=== PATIENT | female | born 1980 | race Hispanic/Latino ===

== ENCOUNTER 2019-07-04 01:20 | Emergency (ER) | payer OTHER, SELFPAY ==
--- NOTE | ~2019-07-04 | XR_ITS ---
EXAMINATION: XR knee LT min 4V DATE: 07/04/2019 02:02 INDICATION: Left knee pain TECHNIQUE: Anteroposterior, 2 oblique and crosstable lateral views of the left knee were obtained COMPARISON: None. FINDINGS: Alignment is normal. No fracture. Joint spaces appear normal on nonweightbearing imaging. Small left knee joint effusion without layering lipohemarthrosis. Mild pretibial subcutaneous edema. IMPRESSION: 1. Small left knee joint effusion without osseous abnormality. Reviewed, dictated and finalized at location A.
[2019-07-04 01:24] VITALS: BP 132/63; PULSE 69; RESP 19; TEMP 36.7; O2SAT 98
--- NOTE | 2019-07-04 01:36 | ED.EXTPRO ---
HPI - Extremity Problem General Chief complaint: Extremity Problem,Nontraumatic Stated complaint: L KNEE PAIN Time Seen by Provider: 07/04/19 01:35 Source: patient and RN notes reviewed Mode of arrival: other Limitations: no limitations History of Present Illness HPI Narrative: Pt is a 39 y/o female who presents to the ED with c/o left knee pain that began yesterday (07/03/19) around 7:45-8 PM after going down the stairs. Pt states that she hear a 'pop' noise and had shooting pains up and down her LLE. Pt states that her left knee has been swelling since the incident. Pt notes that she has been able to ambulate, but her pain is worsened with movement. Pt states that she took Motrin 220 mg about an hour ago. Pt denies numbness and tingling. Complaint: joint paint Onset (ago): day(s) (1) Pain Consistency: constant Location: left and knee Relieving factors: nothing Exacerbating factors: walking Associated symptoms: denies other symptoms Related Data Allergies Allergy/AdvReac Type Severity Reaction Status Date / Time No Known Allergies Allergy Verified 07/04/19 01:33 Review of Systems Review of Systems: All systems reviewed & are unremarkable except as noted in HPI and below Musculoskeletal: Musculoskeletal: Reports other (left knee pain) Neurologic: Denies numbness and Denies tingling PMFSH Past Medical History Medical History (Updated 07/04/19 @ 02:08 by Patrice Jin MD) Bronchitis History of obesity Surgical History Surgical History (Updated 07/04/19 @ 01:37 by Kelsi Martinez) Hx of section x3 Family History Family History (Updated 07/04/19 @ 01:44 by Kelsi Martinez) Sibling Hypertension Diabetes mellitus Crohn's disease Grandparent Cerebrovascular accident Alzheimers disease Diabetes mellitus Hypertension Social History Social History (Updated 05/02/19 @ 20:42 by Bekah Howard PA-C) Smoking status: Never smoker Gender identity (if verbalized by the patient): Female Exam Const: General: healthy appearing and no acute distress Nutritional Appearance: obese HENMT: Mouth: Yes lip normal and Yes moist mucous membranes Eyes: Conjunctivae: conjunctivae normal Pupils: Equal, round and reactive pupils present Resp: Effort & Inspection: normal respiratory effort Skin: General skin exam: normal color, dry skin and other (warm) Neuro: General: patient oriented x3 and other (alert) Speech: normal speech Extrem: General: full ROM and no calf tenderness Other: Left popliteal fossa tenderness Psych: Mental Status: mental status grossly normal Affect: normal affect Course Vital Signs Vital signs: Vital Signs Temperature 36.7 C 07/04/19 01:24 Pulse Rate 69 07/04/19 01:24 Respiratory Rate 19 07/04/19 01:24 Blood Pressure 132/63 07/04/19 01:24 Pulse Oximetry 98 07/04/19 01:24 Temperature 36.7 C 07/04/19 01:24 Pulse Rate 69 07/04/19 01:24 Respiratory Rate 19 07/04/19 01:24 Blood Pressure 132/63 07/04/19 01:24 Pulse Oximetry 98 07/04/19 01:24 MDM - Extremity (Nontraumatic) MDM Narrative Medical decision making narrative: Fracture, dislocation, meniscal injury, Discharge Plan Discharge Clinical Impression: Effusion of knee joint, left Patient Disposition: Home, Self-Care Condition: Stable Instructions: Swollen Knee Joint (ED) Prescriptions: New ibuprofen 800 mg tablet 800 mg PO TID PRN (Reason: pain) Qty: 20 RF: 0 Follow-up/Referrals: UNKNOWN,DOCTOR [Primary Care Provider] -
[2019-07-04] MEDS: ACETAMINOPHEN 500 MG TABLET 1000 MG PO (02:11)
[2019-07-04 03:00] VITALS: BP 144/86; PULSE 88; RESP 19; O2SAT 97
== END 2019-07-04 03:00 | disposition home or self-care (01) ==
PROVIDERS: Emergency Provider Emergency Medicine
DX: M25.462 Effusion, left knee (principal); E66.9 Obesity, unspecified; Z68.41 Body mass index [BMI] 40.0-44.9, adult
CPT/HCPCS: 73564; 99283; A9270

== ENCOUNTER 2020-07-08 10:12 | Emergency (ER) | payer OTHER, SELFPAY ==
--- NOTE | ~2020-07-08 | XR_ITS ---
EXAMINATION: XR chest 1V portable EXAM DATE: 07/08/2020 10:47 INDICATION: Cough and weakness. TECHNIQUE: Frontal and lateral projections of the chest obtained and reviewed. Comparison is made to prior examination from 05/08/2013. FINDINGS: The lungs are clear. There are no pleural effusions. The cardiomediastinal silhouette is within normal limits. There is no pneumothorax suspected. The bones and soft tissues are unremarkab le. IMPRESSION: No acute cardiopulmonary findings. Reviewed, dictated and finalized at location A.
[2020-07-08 10:21] VITALS: BP 145/99; PULSE 78; RESP 20; TEMP 36.7; O2SAT 97
[2020-07-08] MEDS: DEXAMETHASONE SOD PHOS INJ 4 MG/ML VIAL 10 MG IM (10:53)
[2020-07-08 10:57] VITALS: BP 128/80; PULSE 70; RESP 17; O2SAT 95
--- NOTE | 2020-07-08 11:24 | ED.GENADULT ---
HPI - General Adult General Chief complaint: Unspecified Stated complaint: SOB/ST Time Seen by Provider: 07/08/20 10:21 Source: patient Mode of arrival: EMS Limitations: no limitations History of Present Illness HPI narrative: Patient presents with chief complaint of sore throat that began yesterday however today she began feeling concerned because the pain increased and she feels as if her throat was going to close. Patient states the last time that this happened a year ago her daughter was diagnosed with strep throat and had given it to her. Patient denies fever, chills, nausea, vomiting, diarrhea. Patient denies any foods or beverages that could have caused her symptoms. Patient denies cough. Related Data Allergies Allergy/AdvReac Type Severity Reaction Status Date / Time No Known Allergies Allergy Verified 07/08/20 10:33 Review of Systems Review of Systems: Narrative: CONSTITUTIONAL: Denies fever, chills, or sweats. EYES: Denies visual changes, redness, or discharge. ENT: Reports sore throat denies rhinorrhea, congestion, or otalgia. CARDIOVASCULAR: Denies chest pain, palpitations, or edema. RESPIRATORY: Denies cough or dyspnea. GASTROINTESTINAL: Denies abdominal pain, nausea, vomiting, or diarrhea. GENITOURINARY: Denies dysuria or hematuria. SKIN: Denies rash or itching. MUSCULOSKELETAL: Denies back pain, joint pain, or myalgia. NEUROLOGIC: Denies headache, numbness, dizziness, or weakness. PSYCHIATRIC: Denies anxiety or depression. PMFSH Past Medical History Medical History (Updated 07/08/20 @ 11:28 by Hermelinda Amaya PA-C) Bronchitis History of obesity Surgical History Surgical History (Updated 07/04/19 @ 01:37 by Kelsi Martinez) Hx of section x3 Family History Family History (Updated 07/04/19 @ 01:44 by Kelsi Martinez) Sibling Hypertension Diabetes mellitus Crohn's disease Grandparent Cerebrovascular accident Alzheimers disease Diabetes mellitus Hypertension Social History Social History (Updated 05/02/19 @ 20:42 by Bekah Howard PA-C) Smoking status: Never smoker Gender identity (if verbalized by the patient): Female Exam Narrative: Exam Narrative: GENERAL: Well-appearing, well-nourished, and in no acute distress. Morbidly obese. HEAD: Normocephalic, atraumatic. EYES: PERRLA and EOMI. ENT: Nares clear, no rhinorrhea or epistaxis. Mucous membranes moist. Oropharynx without tonsillar hypertrophy exudate or other lesions. Airway is patent without erythema or signs of obstruction. Bilateral TMs pearly merritt nonbulging NECK: Supple. No adenopathy or masses. CHEST: Clear to auscultation. No respiratory distress. No wheezes rales or rhonchi HEART: Regular rate and rhythm. No murmur heard. Normal peripheral pulses. EXTREMITIES: Normal range of motion. No edema. SKIN: Warm, dry, no rash. NEURO: No focal deficits. Alert and oriented x3. PSYCH: Normal mood and affect. Course Vital Signs Vital signs: Vital Signs Temperature 98.1 F 07/08/20 10:21 Pulse Rate 78 07/08/20 10:21 Respiratory Rate 20 07/08/20 10:21 Blood Pressure 145/99 H 07/08/20 10:21 Pulse Oximetry 97 07/08/20 10:21 Temperature 98.1 F 07/08/20 10:21 Pulse Rate 70 07/08/20 10:57 Respiratory Rate 17 07/08/20 10:57 Blood Pressure 128/80 07/08/20 10:57 Pulse Oximetry 95 07/08/20 10:57 Medical Decision Making MDM Narrative Medical decision making narrative: Patient given Decadron. Patient's airway is patent and does not show any signs of obstruction. Patient strep test was negative and her chest x-ray was negative. Patient does not have wheezing, rales or rhonchi or other signs of respiratory pathology. Patient is instructed to go home, rest, Tylenol or Motrin for throat soreness and follow-up with her primary care for further investigation. Patient directed to return to emergency department if she has any emergent symptoms. Patient reports feeling improved an
--- NOTE | 2020-07-08 11:41 | PC.NURSE ---
Pt refused to sign d/c papers. Attempted to give form to for him to sign. this RN asked pt if she could sign, and pt declined. pt/ verbalized understanding of d/c instructions. Ambulatory out of ED with steady, even, unassisted gait.
== END 2020-07-08 11:47 | disposition home or self-care (01) ==
PROVIDERS: Emergency Provider Emergency Medicine; PCP Family Medicine
DX: J02.9 Acute pharyngitis, unspecified (principal); E66.9 Obesity, unspecified; Z68.42 Body mass index [BMI] 45.0-49.9, adult
CPT/HCPCS: 71045; 87081; 87880; 96372; 99283; J1100

== ENCOUNTER 2021-07-31 08:02 | Outpatient (CLI) | payer OTHER, SELFPAY ==
--- NOTE | ~2021-07-31 | MM_ITS ---
EXAMINATION: MM screening marc BI w rigo HISTORY: Screening mammogram TECHNIQUE: Craniocaudal and mediolateral oblique 3-D tomosynthesis images were obtained and synthetic 2-D images were generated. CAD analysis was submitted and interpreted. COMPARISON: No prior mammogram is available for comparison at this institution. BREAST PARENCHYMAL COMPOSITION: The breasts are almost entirely fatty. FINDINGS: There is no evidence of suspicious mass, calcification, or architectural distortion to sugg est malignancy in either breast. There has been no suspicious interval change. IMPRESSION: 1. No mammographic evidence of malignancy. 2. Recommend routine screening mammography in one year. BI-RADS Category 1: Negative Reviewed, dictated and finalized at location A.
[2021-07-31 09:22] LABS: Alanine Aminotransferase 39 U/L (4-35); Albumin Level 4.6 g/dL (3.5-5.1); Alkaline Phosphatase 71 U/L (38-126); Anion Gap 8 mmol/L (8-16); Aspartate Amino Transferase 33 U/L (14-36); Bilirubin,Total 0.7 mg/dL (0.2-1.3); Blood Urea Nitrogen 11 mg/dL (7-17); Calcium 9.1 mg/dL (8.4-10.2); Carbon Dioxide 27 mmol/L (22-30); Chloride 104 mmol/L (98-107); Cholesterol 176 mg/dL (0-200); Estimated Glomerular Filt Rate > 60; Glucose 116 mg/dL (65-110); HDL Direct 42 mg/dL; Potassium 4.2 mmol/L (3.4-5.0); Sodium 139 mmol/L (137-145); Triglycerides 135 mg/dL (<150)
[2021-07-31 09:24] LABS: Basophils Percent Auto 0.5 % (0.2-1.2); Eosinophils Absolute Auto 0.4 K/mm3 (0-0.3); Eosinophils Percent Auto 4.7 % (0-4.4); Hematocrit 39.1 % (37.0-47.0); Hemoglobin 12.6 g/dL (12.0-15.0); Immature Granulocyte Percent A 1.2 % (0-0.5); Lymphocytes Absolute Auto 2.19 K/mm3 (0.9-3.2); Lymphocytes Percent Auto 26.4 % (18.3-44.2); Mean Corpuscular HGB Conc 32.2 g/dl (32-36); Mean Corpuscular Hemoglobin 29.6 pg (26-34); Mean Platelet Volume 10.2 fl (7.4-10.4); Monocytes Absolute Auto 0.4 K/mm3 (0.1-0.6); Monocytes Percent Auto 5.2 % (2.6-8.5); Neutrophils Absolute Auto 5.1 K/mm3 (1.3-6.7); Nucleated Red Blood Cells Perc 0.2 % (0.0-0.2); Platelet Count Result 278 k/mm3 (150-375); Red Blood Count 4.25 M/mm3 (4.2-5.4); Red Cell Distribution Width 12.8 % (11.5-14.5); White Blood Count 8.3 K/mm3 (4.5-10.0)
[2021-07-31 09:33] LABS: LDL Cholesterol Direct 99 mg/dL
[2021-07-31 09:35] LABS: Hemoglobin A1C 5.1 % (<5.7)
[2021-07-31 09:53] LABS: Free T4 Free Thyroxine 0.88 ng/mL (0.78-2.19)
== END 2021-07-31 08:03 | disposition home or self-care (01) ==
PROVIDERS: PCP Physician Assistant; Visit Provider Physician Assistant
DX: Z12.31 Encounter for screening mammogram for malignant neoplasm of breast (principal); L60.2 Onychogryphosis
CPT/HCPCS: 36415; 77063; 77067; 80053; 80061; 83036; 84439; 84443; 85025

== ENCOUNTER 2022-02-16 08:10 | Emergency (ER) | payer OTHER, SELFPAY ==
--- NOTE | 2022-02-16 08:16 | ED.URI ---
HPI - URI/Sore Throat General Chief Complaint: Upper Respiratory Infection Stated Complaint: Fever, Ears Irritation, Cough Time Seen by Provider: 02/16/22 08:16 Source: patient, RN notes reviewed and old records reviewed Mode of arrival: ambulatory Limitations: no limitations History of Present Illness HPI Narrative: 41-year-old female presents to the [facility] with complaints feeling feverish, ear congestion, cough, sinus congestion, sore throat since last night. Patient reports that she started not feeling well on Tuesday. Has taken Tylenol. No other treatment prior to arrival. Patient denies any past medical or surgical history Related Data Allergies Allergy/AdvReac Type Severity Reaction Status Date / Time No Known Allergies Allergy Verified 02/16/22 08:16 Review of Systems Review of Systems: All systems reviewed & are unremarkable except as noted in HPI and below Constitutional: Constitutional: Reports as per HPI, Reports body ache(s), Reports chills and Denies fever(s) Eyes: Eyes: Reports no additional eye complaints ENT: Reports as per HPI, Reports nasal congestion and Reports sore throat Cardiovascular: Cardiovascular: Reports no additional cardiovascular complaints Respiratory: Respiratory: Reports as per HPI and Reports cough Gastrointestinal: Gastrointestinal: Reports no additional gastrointestinal complaints Musculoskeletal: Musculoskeletal: Reports no additional musculoskeletal complaints Integumentary/Breasts: Skin/Breast: Reports system reviewed and no additional complaints, except as docu Neurologic: Reports system reviewed and no additional complaints, except as documented Psychiatric: Psychiatric: Reports no additional psychiatric complaints Allergic/Immunologic: Allergic/Immunologic: Reports no additional allergic/immunologic complaints PMFSH Past Medical History Medical History (Updated 02/16/22 @ 08:35 by Denise Mejía APRN) Bronchitis History of obesity Surgical History Surgical History Hx of section x3 Family History Family History (Updated 07/04/19 @ 01:44 by Kelsi Martinez) Sibling Hypertension Diabetes mellitus Crohn's disease Grandparent Cerebrovascular accident Alzheimers disease Diabetes mellitus Hypertension Social History Social History Smoking status: Never smoker Gender identity (if verbalized by the patient): Female Comments At the time of my signature, I reviewed and agree with the nursing past medical, surgical, social, and family history. There is no relevant family history pertinent to the patient complaint. Exam Const: General: healthy appearing, comfortable, no acute distress, well developed, alert and well nourished Nutritional Appearance: well nourished Orientation/consciousness: patient oriented x3 Limitations: no limitations HENMT: Head: normal to inspection Ears: external ears normal, TM's normal bilaterally and EAC's normal Face/Nose/Sinus: Normal external nose present and Normal nares present Face and sinus: normal facial exam Mouth: Yes Normal oral and palatal mucosa present, Yes lip normal and Yes moist mucous membranes Throat: posterior oropharynx normal and uvula midline Eyes: General: appearance normal, both eyes and all related structures Conjunctivae: conjunctivae normal Pupils: Equal, round and reactive pupils present Neck: Neck: normal visual inspection, full ROM, no lymphadenopathy and no meningeal signs Chest: Chest palpation & inspection: normal inspection of the chest Resp: Effort & Inspection: normal respiratory effort and no use of accessory muscles Auscultation: clear to auscultation bilaterally, no crackles, no rales, no rhonchi and no wheezes Cardio: Rate: regular rate Rhythm: regular rhythm Back/Spine/Pelvis: Cervical Spine: cervical ROM normal and No Cervical spine tenderness
[2022-02-16 08:19] VITALS: BP 115/66; PULSE 84; RESP 18; TEMP 36.1; O2SAT 99
== END 2022-02-16 08:55 | disposition home or self-care (01) ==
PROVIDERS: Emergency Provider Nurse Practitioner; PCP Physician Assistant
DX: J10.1 Influenza due to other identified influenza virus with other respiratory manifestations (principal); Z20.822 Contact with and (suspected) exposure to COVID-19; E66.9 Obesity, unspecified; Z68.44 Body mass index [BMI] 60.0-69.9, adult
CPT/HCPCS: 87081; 87426; 87804; 87880; 99213; C9803; G0463

== ENCOUNTER 2022-03-29 19:24 | Emergency (ER) | payer OTHER, SELFPAY ==
[2022-03-29 19:37] VITALS: BP 134/77; PULSE 71; RESP 16; TEMP 36.4; O2SAT 100
--- NOTE | 2022-03-29 20:15 | ED.URI ---
HPI - URI/Sore Throat General Chief Complaint: Upper Respiratory Infection Stated Complaint: Left Ear Pain, Sore Throat, Cough Source: patient Mode of arrival: ambulatory Limitations: no limitations History of Present Illness HPI Narrative: 41-year-old female presents to [facility] with complaints of sore throat, cough, left ear pain and body aches for the past 3 days. Patient has been taking leca-xya-bzoaior cold medication with minimal relief. Patient reports that she had influenza approximately 2 weeks ago. Patient denies shortness of breath, wheezing, nausea, vomiting or diarrhea. Patient denies recent travel. MD elicited complaint: sore throat, rhinorrhea and nasal congestion Onset (ago): day(s) (3) Able to tolerate fluids by mouth: Yes Treatments prior to arrival: cold medicine Related Data Allergies Allergy/AdvReac Type Severity Reaction Status Date / Time No Known Allergies Allergy Verified 03/29/22 19:42 Review of Systems Constitutional: Constitutional: Reports chills, Reports fatigue, Denies fever(s) and Denies weakness ENT: Reports nasal congestion and Reports sore throat Comments: Left ear pain Cardiovascular: Cardiovascular: Denies chest pain, Denies rapid heart rate and Denies radiating jaw, neck or arm pain Respiratory: Respiratory: Denies cough, Denies dyspnea and Denies wheezing Gastrointestinal: Gastrointestinal: Denies diarrhea, Denies nausea and Denies vomiting Integumentary/Breasts: Skin/Breast: Denies rash Allergic/Immunologic: Allergic/Immunologic: Denies lip swelling, Denies throat swelling and Denies tongue swelling PMFSH Past Medical History Medical History Bronchitis History of obesity Surgical History Surgical History Hx of section x3 Family History Family History Sibling Hypertension Diabetes mellitus Crohn's disease Grandparent Cerebrovascular accident Alzheimers disease Diabetes mellitus Hypertension Social History Social History Smoking status: Never smoker Gender identity (if verbalized by the patient): Female Comments At time of signature, I agree with nursing past medical, surgical, social and family history. There is no relevant family history pertinent to the presenting complaint. Exam Const: General: healthy appearing and no acute distress Nutritional Appearance: obese Orientation/consciousness: patient oriented x3 Limitations: no limitations HENMT: Head: normal to inspection Ears: external ears normal, EAC's normal and TM abnormal wth effusion serous on the left and erythematous on the left Throat: posterior oropharynx normal and uvula midline Other: mild nasal congestion noted Neck: Neck: normal visual inspection Resp: Effort & Inspection: normal respiratory effort and not labored Auscultation: clear to auscultation bilaterally, no crackles, no rales and no rhonchi Cardio: Rate: regular rate Rhythm: regular rhythm Heart sounds: no murmurs Skin: General skin exam: normal color Rashes: no rashes Psych: Affect: normal affect Attitude: cooperative Course Course Level of Care: Express Care Visit Vital Signs Vital signs: Vital Signs Temperature 36.4 C 03/29/22 19:37 Pulse Rate 71 03/29/22 19:37 Respiratory Rate 16 03/29/22 19:37 Blood Pressure 134/77 03/29/22 19:37 Pulse Oximetry 100 03/29/22 19:37 Oxygen Delivery Room Air 03/29/22 19:37 Temperature 36.4 C 03/29/22 19:37 Pulse Rate 71 03/29/22 19:37 Respiratory Rate 16 03/29/22 19:37 Blood Pressure 134/77 03/29/22 19:37 Pulse Oximetry 100 03/29/22 19:37 Oxygen Delivery Room Air 03/29/22 19:37 MDM - URI/Sore Throat MDM Narrative Medical decision making narrative: instructed patient to take
== END 2022-03-29 20:34 | disposition home or self-care (01) ==
PROVIDERS: Emergency Provider Nurse Practitioner Family; PCP Physician Assistant
DX: H66.92 Otitis media, unspecified, left ear (principal); E66.9 Obesity, unspecified; Z68.44 Body mass index [BMI] 60.0-69.9, adult
CPT/HCPCS: 99213; G0463

== ENCOUNTER 2022-08-04 18:22 | Emergency (ER) | payer OTHER, SELFPAY ==
[2022-08-04 18:31] VITALS: BP 152/72; PULSE 77; RESP 18; TEMP 36.5; O2SAT 100
--- NOTE | 2022-08-04 19:15 | ED.FEMALEGU ---
HPI - Female Genitourinary General Chief complaint: Urogenital-Female Stated complaint: UTI Time Seen by Provider: 08/04/22 19:08 Source: patient and RN notes reviewed Mode of arrival: ambulatory Limitations: no limitations History of Present Illness HPI Narrative: Patient presents today complaining 5 day history of lower abdominal cramping, low back pain, urinary frequency. Denies any additional symptoms. LMP was 07/07/2022. Denies dysuria, hematuria. Related Data Allergies Allergy/AdvReac Type Severity Reaction Status Date / Time No Known Allergies Allergy Verified 08/04/22 18:34 Review of Systems Review of Systems: CONSTITUTIONAL: Denies body aches, fever, chills, or sweats. EYES: Denies visual changes, redness, or discharge. ENT: Denies rhinorrhea, congestion, sore throat, or otalgia. CARDIOVASCULAR: Denies chest pain, palpitations, or edema. RESPIRATORY: Denies cough or dyspnea. GASTROINTESTINAL: Denies abdominal pain, nausea, vomiting, or diarrhea. GENITOURINARY: Denies dysuria or hematuria.+ urinary frequency, lower abdominal cramping SKIN: Denies rash, itching, or wounds. MUSCULOSKELETAL: Denies joint pain, or myalgia.+ low back pain NEUROLOGIC: Denies headache, numbness, tingling, or weakness. PSYCH: Denies depression or anxiety. [facility] Past Medical History Medical History Bronchitis History of obesity Surgical History Surgical History Hx of section x3 Family History Family History Sibling Hypertension Diabetes mellitus Crohn's disease Grandparent Cerebrovascular accident Alzheimers disease Diabetes mellitus Hypertension Social History Social History Smoking status: Never smoker Gender identity (if verbalized by the patient): Female Comments At time of signature, I have reviewed and agree with nursing past medical, surgical, social and family history unless otherwise noted. Please see nursing chart for further information. There is no relevant family history pertinent to the presenting complaint Exam Narrative: GENERAL: Well-appearing, well-nourished, and in no acute distress. HEAD: Normocephalic, atraumatic. EYES: EOMI. No redness or drainage. Conjunctivae normal. ENT: Mucous membranes pink and moist. NECK: Normal AROM. CHEST: No respiratory distress. Clear to auscultation. HEART: Regular rate and rhythm. No murmur appreciated. Normal peripheral pulses. ABDOMEN: Soft, nontender, nondistended, normal active bowel sounds.-CVAT MUSCULOSKELETAL: No bony tenderness. EXTREMITIES: Normal range of motion. No edema. SKIN: Warm, dry, no rash. Capillary refill normal. Normal skin turgor. NEURO: No focal deficits. Alert and oriented x3. Gait steady. PSYCH: Normal affect. No signs of depression or anxiety. Course Course Level of Care: Express Care Visit Vital Signs Vital signs: Vital Signs Temperature 97.7 F 08/04/22 18:31 Pulse Rate 77 08/04/22 18:31 Respiratory Rate 18 08/04/22 18:31 Blood Pressure 152/72 H 08/04/22 18:31 Pulse Oximetry 100 08/04/22 18:31 Oxygen Delivery Room Air 08/04/22 18:31 Temperature 97.7 F 08/04/22 18:31 Pulse Rate 77 08/04/22 18:31 Respiratory Rate 18 08/04/22 18:31 Blood Pressure 152/72 H 08/04/22 18:31 Pulse Oximetry 100 08/04/22 18:31 Oxygen Delivery Room Air 08/04/22 18:31 Reviewed. Pt has been instructed to follow up with her PCP regarding her elevated blood pressure today. MDM - Female Genitourinary MDM Narrative Medical decision making narrative: Patient not currently menstruating. Significant blood in the urine and she has a significant urinary frequency. Will treat for UTI. Prescription for cephalexin to the pharmacy. Anticipat
== END 2022-08-04 19:17 | disposition home or self-care (01) ==
PROVIDERS: Emergency Provider Nurse Practitioner; PCP Physician Assistant
DX: N30.01 Acute cystitis with hematuria (principal); E66.9 Obesity, unspecified; Z68.44 Body mass index [BMI] 60.0-69.9, adult
CPT/HCPCS: 81003; 87077; 87086; 87186; 99213; G0463

== ENCOUNTER 2023-01-03 17:10 | Outpatient (CLI) | payer OTHER, SELFPAY ==
--- NOTE | ~2023-01-03 | XR_ITS ---
XR knee RT 3V 01/03/2023 17:30 Indication: Right knee pain Procedure: 3 views right knee Comparison: No prior studies for comparison. Findings: Mild osteoarthritis of the right knee. Small joint effusion. No foreign bodies. Impression: 1: Mild osteoarthritis of the right knee. Reviewed, dictated and finalized at location L. Impression: 1: Mild osteoarthritis of the right knee.
== END 2023-01-03 17:11 | disposition home or self-care (01) ==
LOC: ANHIMG 17:12
PROVIDERS: PCP Physician Assistant; Visit Provider Physician Assistant
DX: M17.11 Unilateral primary osteoarthritis, right knee (principal)
CPT/HCPCS: 73562

== ENCOUNTER 2023-01-09 15:54 | Emergency (ER) | payer OTHER, SELFPAY ==
[2023-01-09 16:10] VITALS: BP 116/58; PULSE 76; RESP 20; TEMP 36.4; O2SAT 98
--- NOTE | 2023-01-09 16:33 | ED.URI ---
HPI - URI/Sore Throat General Chief Complaint: Upper Respiratory Infection Stated Complaint: Sore Throat and Cough Time Seen by Provider: 01/09/23 16:25 Source: patient, RN notes reviewed and old records reviewed Mode of arrival: ambulatory Limitations: no limitations History of Present Illness HPI Narrative: 42-year-old female who presents to [facility] with 1 week duration of tickling in throat which is causing cough and 2-3 days of sore throat. Patient denies any fevers, chills, headaches or any body aches. Patient has been taking some Ibuprofen for her discomfort. Patient reports that she has been COVID vaccinated. Patient reports no known ill contacts. MD elicited complaint: cough and sore throat Onset (ago): week(s) (cough one week, 2-3 days sore throat) Severity: mild Able to tolerate fluids by mouth: Yes Treatments prior to arrival: ibuprofen Related Data Allergies Allergy/AdvReac Type Severity Reaction Status Date / Time No Known Allergies Allergy Verified 01/09/23 16:03 Review of Systems Review of Systems: CONSTITUTIONAL: Denies malaise, chills, sweats, or fever. EYES: Denies visual changes, redness, or discharge. ENT: Reports rhinorrhea, congestion, no sinus pain,no otalgia and positive for sore throat. CARDIOVASCULAR: Denies chest pain, palpitations, or edema. RESPIRATORY: Reports cough.? Denies dyspnea. GASTROINTESTINAL: Denies abdominal pain, nausea, vomiting, diarrhea SKIN: Denies rash or itching. MUSCULOSKELETAL: Denies myalgia. NEUROLOGIC: Denies headache. All systems reviewed & are unremarkable except as noted in HPI and below PMFSH Past Medical History Medical History (Updated 01/12/23 @ 09:57 by Luh Hathaway NP) Bronchitis History of obesity Urinary tract infection Surgical History Surgical History (Updated 01/12/23 @ 09:54 by Luh Hathaway NP) Hx of section x4 Family History Family History Sibling Hypertension Diabetes mellitus Crohn's disease Grandparent Cerebrovascular accident Alzheimers disease Diabetes mellitus Hypertension Social History Social History Smoking status: Never smoker Gender identity (if verbalized by the patient): Female Comments At time of signature, agree with nursing past medical, surgical, social and family history. There is no relevant family history pertinent to the presenting complaint Exam Narrative: GENERAL: Well-appearing, well-nourished, and in no acute distress. HEAD: Normocephalic EYES: PERRLA, conjunctivae clear ENT: Nares clear, turbinates edematous and erythematous, clear discharge. Mucous membranes moist. TM pearly merritt with dull light reflex bilaterally; no tragal tenderness. Oropharynx erythematous without lesions. Tonsils not enlarged and without exudate, no drooling, no hoarseness, no trismus, uvula midline.post nasal drainage NECK: Supple. No lymphadenopath CHEST: Clear to auscultation, breath sounds equal. No wheezing, rhonchi, rales, or stridor. No respiratory distress, speaks in full sentences.cough,SAO2 98% on room air HEART: Regular rate and rhythm. No murmur heard. SKIN: Warm, dry, no rash. NEURO: Alert and oriented x3. PSYCH: Normal mood and affect Course Course Emergency Course: Patient is aware of diagnosis, understands and agrees to treatment plan.? Anticipatory guidance given.? Patient agrees to follow-up as directed and is aware of reasons to seek care at the emergency department. Portions of this record may have been created with voice recognition software Level of Care: Express Care Visit Vital Signs Vital signs: Vital Signs Temperature 36.4 C 01/09/23 16:10 Pulse Rate 76 01/09/23 16:10 Respiratory Rate 20 01/09/23 16:10 Blood Pressure 116/58 L 01/09/23 16:10 Pulse Oximetry 98 01/09/23 16:10 Oxygen Deliver
== END 2023-01-09 16:45 | disposition home or self-care (01) ==
PROVIDERS: Emergency Provider Registered Nurse; PCP Physician Assistant
DX: J06.9 Acute upper respiratory infection, unspecified (principal)
CPT/HCPCS: 87081; 87880; 99213; G0463

== ENCOUNTER 2023-03-17 09:00 | Outpatient (RCR) | payer OTHER, SELFPAY ==
--- NOTE | 2023-01-27 16:30 | OPREHPOC ---
Outpatient Therapy Plan of Care This is a Multidisciplinary Plan of Care that may contain components documented by all disciplines (PT, OT, and ST.) PT Problem 1 PT Problem #1 Knowledge Deficit PT Goal 1 Goal Patient will be independent with LE strengthening and stability exercise Target Visit 4 PT Problem 2 PT Problem #2 Pain PT Goal 1 Goal Indicate pain no greater than 3/10 with sit to stand activity Target Visit 8 PT Problem 3 PT Problem #3 Impaired Gait PT Goal 1 Goal Ambulate distance of 100' with no increased knee pain indicated by improved patellar stability Target Visit 8 PT Problem 4 PT Problem #4 Impaired Range of Motion PT Goal 1 Goal Improve R knee extension to terminal for improved ambulation and functinal mobility Target Visit 8 PT Goal 2 Goal Achieve 10 degrees of R ankle DF ROM for improved terminal stance and evenness of gait Target Visit 8
--- NOTE | 2023-01-27 16:30 | PTOPEVAL1 ---
Assessment and note entered by Hunter Welch, PT Evaluation Information Assessment Status Evaluation Diagnosis Right knee Osteoarthritis, R knee pain, altered gait, knee weakness Onset Feb 2022 Subjective Information Reports that most of her pain is at initiation of activity and after short distance walking. She is R handed. 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 Most of her pain is medial and inferior. Will occasionally have posterior knee pain. Feels that knee will need to pop at times which is painful but followed by relief. She wants to get weight off to help with the intermediate health of her knees . Reported Pain Level Pain Score 5: Self Report Assessment PT Clinical Summary Patient demonstrating deficits in knee extension, ankle DF and hip abduction. All could be contributing to kinesiological issues of the knee and will benefit from skilled therapy to address these deficits. Structurally the knee appears to have good alignment on x-ray but likely having some difficulty with patellar tracking. Plan of Care Interventions Electrical Stimulation,Gait Training,Manual Lymph Drainage,Neuro Re-education,Therapeutic Activities ,Therapeutic Exercise PT Services Indicated Yes Treatment Frequency and 2x/week for 4 weeks Duration These treatments will address the objective and functional deficits as defined above. The patient will be advanced safely and appropriately in order for the patient to progress towards his/her prior level of function. Additional exercises will be introduced and as well as a comprehensive home exercise program upon discharge, if needed, ?to ensure carryover of functional gains achieved in the clinic. This treatment plan has been reviewed and agreement upon by the patient.
--- NOTE | 2023-02-11 12:49 | PCPTNOTE ---
Pt. did not show for her PT appointment this date. Called and left voice mail and reminded pt. of her next upcoming appointment
--- NOTE | 2023-02-21 12:33 | PCPTNOTE ---
Cancelled today secondary to conflicting appointment with son.
--- NOTE | 2023-02-24 10:56 | OPREHPOC ---
Outpatient Therapy Plan of Care This is a Multidisciplinary Plan of Care that may contain components documented by all disciplines (PT, OT, and ST.) PT Problem 1 PT Problem #1 Knowledge Deficit PT Goal 1 Goal Patient will be independent with LE strengthening and stability exercise Target Visit 4 Progress Met Comment 02-24-23 progress met goal continue to progress HEP PT Problem 2 PT Problem #2 Pain PT Goal 1 Goal Indicate pain no greater than 3/10 with sit to stand activity Target Visit 8 Progress Not Met Comment 02-24-23 progress goal not met, 7/10 continue towards goal PT Problem 3 PT Problem #3 Impaired Gait PT Goal 1 Goal Ambulate distance of 100' with no increased knee pain indicated by improved patellar stability Target Visit 8 Progress Met Comment 02-24-23 progress met goal NEW GOAL: 1* on 4 steps, pt report pain rating of 5/10 PT Problem 4 PT Problem #4 Impaired Range of Motion PT Goal 1 Goal Improve R knee extension to terminal for improved ambulation and functinal mobility Target Visit 8 Progress Met Comment 02-24-23 progress met goal discontinue intervention PT Goal 2 Goal Achieve 10 degrees of R ankle DF ROM for improved terminal stance and evenness of gait Target Visit 8 Progress Met Comment 02-24-23 progress met goal discontinue intervention
--- NOTE | 2023-02-24 10:57 | PTOPPROG ---
Assessment and note entered by Bernarda Taylor, PT Progress Information Assessment Status Progress Diagnosis Right knee Osteoarthritis, R knee pain, altered gait, knee wakness Onset Feb 2022 Subjective Information knee is better, not popping as much; want to avoid surgery on knee; hard to get up from sitting to standing--hurts in center of knee; PAIN: range in the past week: 3-8/10 increase pain: sit to stand transfer--increase to 7/10; stand too long--15 min decrease pain: move knee, change position, heat, is not taking any pain meds; leukotape strip over lateral patella to improve tracking Assessment PT Clinical Summary Erica has received 5 PT sessions. Compared to the initial evaluation: pain rating at the high rating is same at 8/10 and low level from 4 to 3/10; improved standing tolerance, R ankle DF & knee extension ROM and strength of R LE. Education for home exercises, gait pattern, leukotape for knee; The goals were partially met. Continue PT. Plan of Care Interventions Hot Pack/Cold Pack,Manual Therapy,Neuro Re- education,Patient Education,Therapeutic Activities,Therapeutic Exercise,Ultrasound,Other Other Interventions taping, IAST[facility] PT Services Indicated Yes Treatment Frequency and 2x/wk for 3 weeks Duration These treatments will address the objective and functional deficits as defined above. The patient will be advanced safely and appropriately in order for the patient to progress towards his/her prior level of function. Additional exercises will be introduced and as well as a comprehensive home exercise program upon discharge, if needed, ?to ensure carryover of functional gains achieved in the clinic. This treatment plan has been reviewed and agreement upon by the patient.
--- NOTE | 2023-03-01 09:01 | PCPTNOTE ---
Patient did not show up for scheduled appointment this date. Called and left voicemail about missed appointment and reminded Pt of upcoming appointment on Mar 08 at 10:45. This is Pt's 2nd N/S.
--- NOTE | 2023-03-11 08:38 | PCPTNOTE ---
Pt cancelled due to ill child.
--- NOTE | 2023-03-14 13:06 | PCPTNOTE ---
Pt no showed her visit today.
--- NOTE | 2023-03-17 09:48 | PCPTNOTE ---
pt did not show for today's reeval appt; called and left voice message for her.
--- NOTE | 2023-03-28 10:04 | PTOPDC ---
Assessment and note entered by Bernarda Taylor, PT Discharge Information Assessment Status Discharge - Pt Not Present Diagnosis Right knee Osteoarthritis, R knee pain, altered gait, knee weakness Onset Feb 2022 Assessment PT Clinical Summary PHYSICAL THERAPY DISCHARGE Erica has received 6 PT sessions, from Jan 27 to Mar 08 for the diagnosis of R knee OA. She called/canceled 2 and did not show for 4 appointments. She will be discharged at this time. The goals were not addressed. Plan of Care PT Services Indicated No
== END 2023-03-28 11:54 | disposition home or self-care (01) ==
LOC: ANHPT 09:00
PROVIDERS: PCP Physician Assistant; Visit Provider Physician Assistant
DX: M17.11 Unilateral primary osteoarthritis, right knee (principal)
CPT/HCPCS: 97110; 97116; 97140; 97161; 97530; 99199